=== PATIENT | female | born 1965 | race Caucasian/White ===

== ENCOUNTER 2020-09-18 07:16 | Observation (INO) ==
[~2020-09-18 07:16] MED LIST: cefTRIAXone 1,000 MG in SYRINGE 1 EACH IV ONE
[2020-09-18] MEDS ORDERED: FAMOTIDINE 20 MG TABLET PO ONE (07:41)
[2020-09-18] MEDS ORDERED: DIAZEPAM 5 MG TABLET PO ONE (07:41)
[2020-09-18] MEDS ORDERED: SCOPOLAMINE 1.5 MG PATCH TRANSDERM STA (07:52)
[2020-09-18] MEDS ORDERED: SCOPOLAMINE 1.5 MG PATCH TRANSDERM ONE (07:53)
[2020-09-18] MEDS ORDERED: LACTATED RINGERS 1,000 ML IV SCH (08:00)
[2020-09-18] MEDS ORDERED: LIDOCAINE 2% 5 ML VIAL ONE (08:59)
[2020-09-18] MEDS ORDERED: propofoL 200 MG/20 ML VIAL IV ONE (08:59)
[2020-09-18] MEDS ORDERED: MIDAZOLAM 2 MG/2 ML VIAL ONE (08:59)
[2020-09-18] MEDS ORDERED: fentaNYL 100 MCG/2 ML VIAL ONE (09:00)
[2020-09-18] MEDS ORDERED: DEXAMETHASONE 4 MG/1 ML VIAL ONE (09:42)
[2020-09-18] MEDS ORDERED: ONDANSETRON 4 MG/2 ML VIAL ONE (09:42)
[2020-09-18] MEDS ORDERED: ePHEDrine 50 MG/ML VIAL ONE (09:44)
[2020-09-18] MEDS ORDERED: PHENYLEPHRINE 10 MG/1 ML VIAL IV ONE (09:49)
[2020-09-18] MEDS ORDERED: PHENYLEPHRINE 1 MG/10 ML SYRINGE IV ONE (09:49)
[2020-09-18 10:16] LABS: Basophils % 0.1 % (0.0-0.8); Hematocrit 33.1 VOL% (35.7-47.0); Hemoglobin 11.1 GM/DL (12.0-16.0); Immature Granulocytes % 0.5 %; Immature Granulocytes Absolute 0.12 #; Lymphocytes # 1.7 10*3/uL (1.4-4.0); Lymphocytes % 7.5 % (21.3-54.2); Mean Corpuscular HGB Conc 33.5 GM/DL (32-36); Mean Corpuscular Volume 94.6 FL (87-102); Monocytes % 8.2 % (1.7-12.7); Neutrophils % 83.7 % (38.7-73.9); Platelet Count 384 T/CUMM (130-400); Red Cell Distribution Width 12.4 % (9.3-17.3)
[2020-09-18 10:35] LABS: Lymphocytes 8 % (20-55); Segmented Neutrophils 87 % (50-85); Total Cells Counted 100
[2020-09-18 10:36] LABS: Hypochromasia 1+; Microcytosis 1+
[2020-09-18 10:37] LABS: Platelet Estimate Normal
[2020-09-18 10:38] LABS: Calcium 8.9 MG/DL (8.5-10.1); Osmolality,Calculated 280.8 MOS/KG (273-304); Potassium 4.2 MMOL/L (3.5-5.1)
[2020-09-18] MEDS ORDERED: LACTULOSE 20 GM/30 ML UDCUP PO PRN (10:56)
[2020-09-18] MEDS ORDERED: PROMETHAZINE 25 MG/1 ML VIAL IM PRN (10:56)
[2020-09-18] MEDS ORDERED: ONDANSETRON 4 MG/2 ML VIAL IV PRN (10:56)
[2020-09-18] MEDS ORDERED: PHENAZOPYRIDINE 95 MG TABLET PO PRN (10:56)
[2020-09-18] MEDS ORDERED: oxyCODONE/ACETAMINOPHEN 5-325 MG TABLET PO PRN (10:58)
[2020-09-18] MEDS ORDERED: CLORAZEPATE 3.75 MG TABLET PO PRN (10:58)
[2020-09-18] MEDS ORDERED: OXYBUTYNIN 5 MG TABLET PO PRN (10:58)
[2020-09-18] MEDS ORDERED: HYDROmorphone 2 MG/1 ML VIAL IV PRN (10:59)
[2020-09-18] MEDS ORDERED: SIMETHICONE CHEW 80 MG TABLET PO PRN (10:59)
[2020-09-18] MEDS: SODIUM CHLORIDE 0.9% 1,000 ML IV SCH ×2 (12:02→20:02)
[2020-09-18] MEDS: cefTRIAXone 1,000 MG in SYRINGE 1 EACH IV SCH (12:47)
[2020-09-18] MEDS: ACETAMINOPHEN 325 MG TABLET PO SCH ×3 (12:47→23:24)
[2020-09-18] MEDS: DOCUSATE SODIUM 100 MG CAPSULE PO SCH (20:34)
[2020-09-18] MEDS ORDERED: traZODone 50 MG TABLET PO SCH (21:00)
[2020-09-19] MEDS: SODIUM CHLORIDE 0.9% 1,000 ML IV SCH (04:05)
[2020-09-19] MEDS: ACETAMINOPHEN 325 MG TABLET PO SCH ×2 (06:02→11:14)
[2020-09-19 06:16] LABS: Basophils % 0.2 % (0.0-0.8); Hematocrit 31.5 VOL% (35.7-47.0); Hemoglobin 10.7 GM/DL (12.0-16.0); Immature Granulocytes % 0.7 %; Immature Granulocytes Absolute 0.13 #; Lymphocytes % 4.9 % (21.3-54.2); Mean Corpuscular Volume 94.3 FL (87-102); Mean Platelet Volume 9.5 FL (9.6-12.0); Monocytes % 3.3 % (1.7-12.7); Neutrophils % 90.9 % (38.7-73.9); Platelet Count 323 T/CUMM (130-400); Red Blood Count 3.34 MC/CUMM (3.8-5.5); Red Cell Distribution Width 12.9 % (9.3-17.3); White Blood Count 19.7 T/CUMM (4-12)
[2020-09-19 06:39] LABS: Calcium 8.8 MG/DL (8.5-10.1); Osmolality,Calculated 284.5 MOS/KG (273-304); Potassium 4.1 MMOL/L (3.5-5.1)
[2020-09-19 06:56] LABS: Lymphocytes 6 % (20-55); Segmented Neutrophils 93 % (50-85); Total Cells Counted 100
[2020-09-19 06:57] LABS: Platelet Estimate Normal
[2020-09-19] MEDS: DOCUSATE SODIUM 100 MG CAPSULE PO SCH (08:15)
[2020-09-19] MEDS ORDERED: PANTOPRAZOLE 40 MG TABLET PO SCH (09:00)
[2020-09-19] MEDS ORDERED: CITALOPRAM 40 MG TABLET PO SCH (09:00)
[2020-09-19] MEDS: cefTRIAXone 1,000 MG in SYRINGE 1 EACH IV SCH (12:05)
[2020-09-19] MEDS ORDERED: PNEUMOCOCCAL VACCINE (23 VALENT) 0.5 ML VIAL IM ONE (13:36)
[2020-09-19 13:46] VITALS: BP 102/64
== END 2020-09-19 14:33 | disposition home or self-care (01) ==
LOC: N.OR 07:16 → N.3E 07:16 → N.SDSINP 07:16 → N.3E 11:55 → EDSDCBED 11:55 → N.OR 09-19 14:33 → N.3E 09-25 14:18
PROVIDERS: ADMIT Surgery; ATTEND Surgery